=== PATIENT | female | born 1965 | race Caucasian/White ===

== ENCOUNTER 2021-02-10 14:29 | Emergency (ER) | payer MEDICAID, OTHER ==
[~2021-02-10] VITALS: Ht 160 cm; Wt 90.0 kg
[2021-02-10 15:23] VITALS: BP 183/101
--- NOTE | 2021-02-10 19:36 | NUR ---
Patient given discharge instructions and they have confirmed that they understand the instructions. Patient ambulatory with steady gait. NAD, all questions answered appropriately, denies additional needs at this time. No personal belongings left in room after discharge.
== END 2021-02-10 19:42 | disposition home or self-care (01) ==
LOC: ED 14:59
DX: S16.1XXA Strain of muscle, fascia and tendon at neck level, initial encounter (principal); S39.012A Strain of muscle, fascia and tendon of lower back, initial encounter; V49.19XA Passenger injured in collision with other motor vehicles in nontraffic accident, initial encounter; Y93.89 Activity, other specified; Y92.410 Unspecified street and highway as the place of occurrence of the external cause; Y99.8 Other external cause status
CPT/HCPCS: 70450; 72110; 72125; 99285